=== PATIENT | female | born 1940 | race Caucasian/White ===

== ENCOUNTER 2022-05-05 15:53 | Outpatient (CLI) | payer MEDICARE, BC, SELFPAY | END 2022-05-05 15:54 | disposition home or self-care (01) | LOC: NFLDREF 05-06 12:49 | PROVIDERS: PCP Family Medicine; Referring Provider Family Medicine; Visit Provider Family Medicine | DX: Z00.00 Encounter for general adult medical examination without abnormal findings (principal); I10 Essential (primary) hypertension; R73.9 Hyperglycemia, unspecified; G45.9 Transient cerebral ischemic attack, unspecified | CPT/HCPCS: 80048 ==

== ENCOUNTER 2023-10-02 12:12 | Outpatient (CLI) | payer MEDICARE, BC, SELFPAY ==
--- OUTSIDE RECORDS SUMMARY | 2023-10-02 12:16 | XMS_ITS | Clinical Summary ---
Author Organization [facility] Address [place], [place] [address] Care Team Providers Care Talent Specialist Name Role Phone Manolo Cook MD Primary Care Provider [phone] Allergies Active Allergy Reactions Criticality Noted Date Comments Sulfa (Sulfonamide Antibiotics) Hives 06/13 Tetracycline Hcl Hives 07/09/2021 Medications Medication Sig Dispensed Refills Start Date End Date Status metoprolol succinate (Toprol XL) 50 mg sustained-release tablet Take 50 mg by mouth once daily. Active triamterene-hydrochlor othiazide, 37.5-25 mg, (MAXZIDE-25) 37.5-25 mg tablet Take 1 Tablet by mouth every morning. Active Active Problems Problem Noted Date Diagnosed Date Large bowel obstruction 02/09/2023 Hypertension 10/08/2006 Social History Tobacco Use Types Packs/Day Years Used Date Smoking Tobacco: Never Smokeless Tobacco: Never Tobacco Cessation:Counseling Given: Not Answered Alcohol Use Standard Drinks/Week Comments Never 0 (1 standard drink = 0.6 oz pur e alcohol) Social Connections Answer Date Recorded Frequency of Communication with Friends and Fami ly 0 02/09/2023 Financial Resource Strain Answer Date R ecorded Difficulty of Paying Living Expenses 3 02/09/2023 Difficulty of Paying Living Expenses Not on file 02/09/2023 Food Insecurity Answer Date Recorded Worried About Running Out of Food in the Last Ye ar 1 02/09/2023 Transportation Needs Answer Date Record ed Lack of Transportation (Medical) 1 02/09/2023 Housing Stability Answer Date Recorded Unable to Pay for Housing in the Last Year 1 02/09/2023 Sex and Gender Information Value Date Recorded Sex Assigned at Not on file Gender Identity Not on file Sexual Orientation Not on file Obstetrics History Last Filed Vital Signs Vital Sign Reading Time Taken Comments Blood Pressure 152/87 02/14/2023 8:58 AM HEAD MACHINIST Pulse 70 02/14/2023 8:58 AM HEAD MACHINIST Temperature 36.2 ??C (97.1 ??F) 02/14/2023 7:44 AM CS T Respiratory Rate 16 02/14/2023 8:58 AM HEAD MACHINIST Oxygen Saturation 95% 02/14/2023 8:58 AM HEAD MACHINIST Inhaled Oxygen Concentration - - Weight 79.6 kg (175 lb 6.4 oz) 02/09/2023 6:38 P M HEAD MACHINIST Height 154.9 cm (5' 1) 02/09/2023 6:38 PM HEAD MACHINIST Body Mass Index 33.14 02/09/2023 6:38 PM HEAD MACHINIST Plan of Treatment Health Maintenance Due Date Last Done Comments Tdap 1949 Depression screening for age 12+ 1950 BMI (ht and wt on same day) for age 18+ 1956 Tetanus booster 1958 Zoster (shingles) series for age 50+ (1 of 2) 09/30/18 89 DEXA/DXA scan for age 65+ 10/01/2003 Pneumococcal series for age 65+ (1 of 1 - PCV) 004 COVID-19 vaccine series ( - 2022-24 season) 3 Influenza for age 65+ 10/14/2023 Advance Directives * Full Code (Latest Code Status on File) Date Activated Date Inactivated Comments 02/09/2023 6:52 PM 02/14/2023 2:39 PM Question Answer Comments Code Status Discussion: Reviewed Preferences Care Teams Talent Specialist Relationship Specialty Start Date End Date Manolo Cook MD [address] [place] [address] PCP - General Family Practice 08/08/16
--- OUTSIDE RECORDS SUMMARY | 2023-10-02 12:16 | XMS_ITS | Referral Summary ---
Author Organization [facility] Address [address] [place] [address] Care Team Providers Care Segmental Paving Supervisor Name Role Phone Elsewhere, Pcp Primary Care Provider Unavailabl e Source Comments Patient records contain information from all sites at [facility]. For routine questions regarding patient records, call [phone] during business hours, M-F 8:00 AM - 5:00 PM Central Time. Record requests for emergency care only can be directed to [phone] at any time.[facility] Encounters Date Type Department Care Team Description 07/20/2023 11:30 AM CDT Telemedicine Division of Colon and Rectal Surgery in [place], [place] [address] [place] [address] Mansi Downs M.D., Ph.D. 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); Colostomy Status (HCC) 07/16/2023 10:30 AM CDT Clinical Support Division of Colon and Rectal Surgery in [place], [place] [address] [place] [address] Lorin Benites R.N., PURA Colostomy Status (HCC) (Primary Dx) from Last 3 Months Allergies Active Allergy Reactions Criticality Noted Date Comments Acyclovir Nausea And Vomiting 06/25/2007 Latex Rash Medium 07/15/2021 Sulfa (Sulfonamide Antibiotics) Hives (Reselect Reaction) 07/09/2021 Tetracycline Anaphylaxis High 10/08/2006 Tetracyclines Hives (Reselect Reaction) 010 Medications Medication Sig Dispensed Refills Start Date End Date Status metoprolol succinate (TOPROL-XL) 50 mg 24 hr tablet Take 50 mg by mouth daily. 3 12/12/2017 Active triamterene-hydroCHL OROthiazide (MAXZIDE-25) 37.5-25 mg per tablet Take 1 tablet by mouth daily. 3 12/12/2017 Active DME Ostomy suppliesIndications: Obstruction Intestinal (HCC) DME Order 1 Unspecified 11 02/20/2023 Active enoxaparin (LOVENOX) 40 mg/0.4 mL injection Inject 0.4 mL (40 mg total) under the skin daily for 7 days. 2.8 mL 02/20/2023 Active oxyCODONE (ROXICODONE) 5 mg immediate release tabletIndications:Ac keith Pain Take 1 tablet (5 mg total) by mouth every 4 (four) hours as needed for pain not relieved by tylenol. Indication: Acute Pain. 6 tablet 02/20/2023 Active ondansetron ODT (ZOFRAN-ODT) 4 mg disintegrating tablet Dissolve 1 tablet (4 mg total) in the mouth every 8 (eight) hours as needed for nausea or vomiting. 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 02/14/2023 Transient Ischemic Attack 02/14/2023 Hypertension Essential Primary 10/08/2006 Resolved Problems Problem Noted Date Diagnosed Date Resolved Date Obstruction Intestinal 02/14/202307/19 Obstruction Intestinal 02/09/202307/19 Immunizations Name Administration Dates Next Due Influenza, Seasonal, Injectable 01/08/2007 Social History Tobacco Use Types Packs/Day Years Used Date Smoking Tobacco: Never Passive Smoke Exposure: Never Tobacco Cessation:Counseling Given: Not Answered Alcohol Use Standard Drinks/Week Comments Not Currently 0 (1 standard drink = 0.6 oz pur e alcohol) [facility] Utilities Answer Date Recorded In the past 12 months has [facility] [employer], gas, oil, or water [employer] threatened to shut off services in your home? Patient declined 04/04/2023 Humiliation, Afraid, Rape, and Kick questionnair e Answer Date Recorded Within the last year, have y ou been afraid of your partner or ex-partner? No 02/16/2023 Within the last year, have y ou been humiliated or emotionally abused in other ways by your partner or ex-partner? No Within the last year, have y ou been kicked, hit, slapped, or otherwise physically hurt by your partner or ex-partner? No 02/16/2023 Within the last year, have y ou been raped or forced to have any kind of sexual activity by your partner or ex-partner? No 02/16/2023 Exercise Vital Sign Answer Date Recorde d On average, how many days pe r week do you engage in moderate to strenuous exercise (like a brisk walk)? Patient declined On average, how many minutes do you engage in exercise at this level? Patient declined 04/04/2023 Hunger Vital Sign Answer Date Recorded Within the past 12 months, y ou worried that your food would run out before you got the money to buy more. Patient declined Within the past 12 months, t he food you bought just didn't last and you didn't have money to get more. Patient declined PRAPARE - Transportation Answer Date Re corded In the past 12 months, has l ack of transportation kept you from medical appointments or from getting medications? Patient declined 04/04/2023 In the past 12 months, has l ack of transportation kept you from meetings, work, or from getting things needed for daily living? Patient declined 04/04/2023 Nutrition Answer Date Recorded Nutrition: EVOO Fat Source 13 10/27 Nutrition: Servings of Fruits/Vegetables per Day Not on file 10/28/2019 Dental Answer Date Recorded Dental: Regular Dentist Unknown 04/05/19 Employment Answer Date Recorded Employment status N/A 04/04/2023 Housing Stability Answer Date Recorded What is your living situation today? Patient dec lined 04/04/2023 Sex and Gender Information Value Date Recorded Sex Assigned at Unknown 04/04/2023 1:31 PM JEWELRY TECHNICIAN Gender Identity Female 04/04/2023 1:31 PM JEWELRY TECHNICIAN Sexual Orientation Not on file Last Filed Vital Signs Vital Sign Reading Time Taken Comments Blood Pressure 173/73 04/02/2023 2:32 PM JEWELRY TECHNICIAN Pulse 53 04/02/2023 2:32 PM JEWELRY TECHNICIAN Temperature 36.6 ??C (97.9 ??F) 04/02/2023 2:32 PM CS T Respiratory Rate 15 04/02/2023 2:32 PM JEWELRY TECHNICIAN Oxygen Saturation 98% 02/20/2023 3:20 PM JEWELRY TECHNICIAN Inhaled Oxygen Concentration - - Weight 76.8 kg (169 lb 6.4 oz) 04/04/2023 1:47 P M JEWELRY TECHNICIAN Height 154.5 cm (5' 0.83) 02/16/2023 3:25 PM CS T Body Mass Index 32.19 02/16/2023 3:25 PM JEWELRY TECHNICIAN Plan of Treatment Not on file Medical Devices Implanted Type Area Lead Manufacturing Technician Device Identifier Shelf Expiration Date Model / Serial / Lot Solid Screw Standard Iti Rn 4.10mm 4.10mm X 16.00mm- Implanted:Qty: 1 on 07/12/1999 by Júnior Cali D.D.S. Hardware e.g. pins/screws/r ods Mouth [employer]umann [id number] / / NA Description:Site #22 Solid Screw Standard Iti Rn 4.10mm 4.10mm X 16.00mm- 000 Implanted:Qty: 1 on 07/12/1999 by Júnior Cali D.D.S. Hardware e.g. pins/screws/r ods Mouth [employer] [id number] / / NA Description:Site #23 Solid Screw Standard Iti Rn 4.10mm 4.10mm X 16.00mm- Implanted:Qty: 1 on 07/12/1999 by Júnior Cali D.D.S. Hardware e.g. pins/screws/r ods Mouth [employer] [id number] / / NA Description:Site #25 Procedures Procedure Name Priority Date/Time Associated Diagnosis Comments COMPREHENSIVE METABOLIC PANEL, S/P Routine 04/02/2023 8:37 AM JEWELRY TECHNICIAN Malignant Neoplasm Of Colon (HCC) from Last 3 Months or Most Recently Relevant to Health Maintenance Results * (ABNORMAL) Comprehensive Metabolic Panel (04/02/2023 8:37 AM JEWELRY TECHNICIAN) Potassium, S 3.3(L) 3.6 - 5.2 mmol/L 04/02/2023 10:00 AM JEWELRY TECHNICIAN DTL Sodium, S 131(L) 135 - 145 mmol/L 04/02/2023 10:00 AM JEWELRY TECHNICIAN DTL Chloride, S 91(L) 98 - 107 mmol/L 04/02/2023 10:00 AM JEWELRY TECHNICIAN DTL Bicarbonate, S 29 22 - 29 mmol/L 04/02/2023 10:00 AM JEWELRY TECHNICIAN DTL Anion Gap 11 7 - 15 04/02/2023 10:00 AM JEWELRY TECHNICIAN DTL BUN (Blood Urea Nitrogen), S 21 6 - 21 mg/dL 04/02/2023 10:00 AM JEWELRY TECHNICIAN DTL Creatinine 1.47(H) 0.59 - 1.04 mg/dL 04/02/2023 10:00 AM JEWELRY TECHNICIAN DTL Estimated GFR (eGFR) 35(L) >=60 mL/min/BS A 04/02/2023 10:00 AM JEWELRY TECHNICIAN DTL Comment: Estimated GFR calculated using the 2020 CKD_EPI creatinine equation. Calcium, Total, S 9.7 8.8 - 10.2 mg/dL 04/02/2023 10:00 AM JEWELRY TECHNICIAN DTL Glucose, S 109 70 - 140 mg/dL 04/02/2023 10:00 AM JEWELRY TECHNICIAN DTL Protein, Total, S 5.9(L) 6.3 - 7.9 g/dL 04/02/2023 10:00 AM JEWELRY TECHNICIAN DTL Albumin, S 3.5 3.5 - 5.0 g/dL 04/02/2023 10:00 AM JEWELRY TECHNICIAN DTL Aspartate Aminotransferase (AST), S 26 8 - 43 U/L 04/02/2023 10:00 AM JEWELRY TECHNICIAN DTL Alkaline Phosphatase, S 62 35 - 104 U/L 04/02/2023 10:00 AM JEWELRY TECHNICIAN DTL Alanine Aminotransferase (ALT), S 18 7 - 45 U/L 04/02/2023 10:00 AM JEWELRY TECHNICIAN DTL Bilirubin, Total, S 0.4 0.0 - 1.2 mg/dL 04/02/2023 10:00 AM JEWELRY TECHNICIAN DTL Blood (Blood, Venous) 04/02/2023 8:37 AM JEWELRY TECHNICIAN 04/02/2023 9:37 AM JEWELRY TECHNICIAN Mansi Downs M.D., Ph.D. LAB BLOOD AD D-ON [facility] [address] [place] [address], [place] DTL [facility] [place] [address] [place] [address] from Last 3 Months or Most Recently Relevant to Health Maintenance Care Teams Segmental Paving Supervisor Relationship Specialty Start Date End Date Elsewhere, Pcp PCP - General Internal Medicine 05/23/22
--- OUTSIDE RECORDS SUMMARY | 2023-10-02 12:16 | XMS_ITS ---
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 Other Current Plans Vascular Access Patency - Peripheral Intravenous Catheter and Rapid Infusion Catheter* Plan Start Date:03/06/2023 Linked Problems Dehydration Treatment Medications No medications scheduled. Past Plans Radiation Treatments * No radiation treatments are documented for this patient in [facility]. Treatments may have been administered in another system. Resolved Problems Problem Noted Date Diagnosed Date Resolved Date Obstruction Intestinal 02/14/202307/19 Obstruction Intestinal 02/09/202307/19
--- OUTSIDE RECORDS SUMMARY | 2023-10-02 12:16 | XMS_ITS | Encounter Summary ---
Author Organization [facility] Address [address] [place] [address] Care Team Providers Care Network Support Engineer Name Role Phone Elsewhere, Pcp Primary Care Provider Unavailabl e Reason for Visit * Outpatient (Routine) - Closed Specialty Diagnoses / Procedures Referred By Contac t Referred To Contact Colon and Rectal Surgery Mansi Downs M.D., Ph.D. [address] [place] [phone] [facility] Referral ID Status Reason Start Date Expiration Date Visits Re quested Visits Authorized [id number] Closed 05/30/2023 11/28/2024 1 1 Encounter Details Date Type Department Care Team (Late st Contact Info) Description 07/20/2023 11:30 AM CDT Telemedicine Division of Colon and Rectal Surgery in [place], [place] [address] [place] [phone] Mansi Downs M.D., Ph.D. 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); Colostomy Status (HCC) Social History Tobacco Use Types Packs/Day Years Used Date Smoking Tobacco: Never Passive Smoke Exposure: Never Alcohol Use Standard Drinks/Week Comments Not Currently 0 (1 standard drink = 0.6 oz pur e alcohol) [facility] Utilities Answer Date Recorded In the past 12 months has [employer], oil, or water [employer] threatened to shut off services in your [...] Sex Assigned at Unknown 04/04/2023 1:31 PM PEST LOCATOR Gender Identity Female 04/04/2023 1:31 PM PEST LOCATOR Sexual Orientation Not on file documented as of this encounter Progress Notes * Mansi Downs M.D., Ph.D. - 07/20/2023 11:30 AM CDT SUBJECTIVE Hates the bag, positioning w short torso. Irritation from the adhesive. Some days she has to take the bag off entirely and just sit with no appliance for her skin. She feels great and wants to live an active life. 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 Eating well. Trying to eat healthy foods. Had good bowel control before all of this started. No incontinence to gas or liquid. Wt 169 currently. 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 pT2N1a ER+ID- Her2-. Ddi not tolerate endocrine therapy 02/15/2023 presented with large bowel obstruction and 2 masses. Splenic flexure and rectal. Open resection of partial transverse to rectum with end colostomy. Moderately differentiated adenocarcinoma, identified in transverse/descending colon, forming a 5 x 4 x 0.8 cm mass invading the pericolonic fat/subserosa. An additional moderately differentiated adenocarcinoma with mucinous features, identified in rectum, arising from a tubulovillousadenoma, forming a 3.5 x 3.5 x 2.0 cm polypoid mass invading the muscularis propria. A separate tubular adenoma with low-grade dysplasia, 2.0 cm is identified in the descending/sigmoid colon. Multiple (42) lymph nodes are negative for tumor. Adjuvant chemo not recommended due to age and other comorbidities.. Declined biopsy of bone and intrathoracic LN for further diagnosis No acute distress treatment recommendations. 04/2023: was due to have radiation therapy to thoracic spine, palliative, but did not do because herpain nisa away CT cap: --Mediastinal and hilar adenopathy concerning for metastatic disease. --Several small pulmonary nodules described above which are indeterminate but concerning in light of findings within both the chest as well as abdomen/pelvis. --Subtle sclerotic lesions within the sternal body as well as a sclerotic compression deformity of the T8 vertebral body concerning for potential pathologic compression deformity. --Persistent areas of focal luminal narrowing within the splenic flexure the colon as well as involving the rectosigmoid colon, for which further endoscopic evaluation is recommended when appropriateclinically. --Similar magnitude of proximal/upstream fluid distention and dilatation. --Indeterminate left adrenal lesion, unchanged. 02/15/2023 MRI pelvis showed upper rectal tumor 10-15 cm from anal verge. MRF clear, no sphincter involvement, no suspicious extra mesorectal lymph nodes. Multiple Bone lesion in the pelvic bone and the sacrum up to 2 cm. 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 This may be a colorectal anastomosis or depending on her anatomy at the time of surgery right hemicolectomy with ileorectalanastomosis. We discussed at length typical changes to bowel function after scientology of continuity especially in the setting of an ileorectal anastomosis. Urgency, frequency, liquid bowel movements, occasional accidents can all be expected especially during initial recovery. With time this generally improved and we can use medication to help it, although some people are so dissatisfied with their bowel function that ultimately they go back to having an ostomy. In her case I would be ileostomy. We discussed typical operative risks such as bleeding infection anastomotic leak, cardiopulmonarycomplications. Discussed postoperative recovery. Ultimately her goal is highest quality of life andbeing active. For some people this is better facilitated with the stoma for others that is better facilitated with scientology of continuity. At this time she wishes to move forward with scientology of continuity understanding all of the issues we discussed above. Family members were also present on the video visit and had the opportunity to provide input in his questions. Encouraged her to remain active, focus on healthy eating, particularly protein, and work toward healthy weight loss if possible while awaiting surgery. My clinical reach out to her for surgical planning and timing. We will need to obtain CT abdomen pelvis with rectal contrast prior to surgery. 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
--- OUTSIDE RECORDS SUMMARY | 2023-10-02 12:16 | XMS_ITS | Clinical Summary ---
Author Organization [facility] Address [address] [place] [address] Care Team Providers Care Psychology Intern Name Role Phone Elsewhere, Pcp Primary Care Provider Unavailabl e Source Comments Patient records contain information from all sites at [facility]. For routine questions regarding patient records, call [phone] during business hours, M-F 8:00 AM - 5:00 PM Central Time. Record requests for emergency care only can be directed to [phone] at any time.[facility] Allergies Active Allergy Reactions Criticality Noted Date [...] Date Obstruction Intestinal 02/14/202307/19 Obstruction Intestinal 02/09/202307/19 Encounters Date Type Department Care Team Description 07/20/2023 11:30 AM CDT Telemedicine Division of Colon and Rectal Surgery in [place], [place] [address] [place] [address] Mansi Downs M.D., Ph.D. 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); Colostomy Status (HCC) 07/16/2023 10:30 AM CDT Clinical Support Division of Colon and Rectal Surgery in [place], [place] [address] [place] [address] Lorin Benites R.N., PURA Colostomy Status (HCC) (Primary Dx) from Last 3 Months Immunizations Name Administration Dates Next Due Influenza, Seasonal, Injectable 01/08/2007 Social History Tobacco Use Types Packs/Day Years Used Date Smoking Tobacco: Never Passive Smoke Exposure: Never Tobacco Cessation:Counseling Given: Not Answered Alcohol Use Standard Drinks/Week Comments Not Currently 0 (1 standard drink = 0.6 oz pur e alcohol) [facility] Utilities Answer Date Recorded In the past 12 months has Meri[employer]aleem, Nala, oil, or water [employer] threatened to shut off services in your [...] Sex Assigned at Unknown 04/04/2023 1:31 PM BICYCLE TAXI DRIVER Gender Identity Female 04/04/2023 1:31 PM BICYCLE TAXI DRIVER Sexual Orientation Not on file Last Filed Vital Signs Vital Sign Reading Time Taken Comments Blood Pressure 173/73 04/02/2023 2:32 PM BICYCLE TAXI DRIVER Pulse 53 04/02/2023 2:32 PM BICYCLE TAXI DRIVER Temperature 36.6 ??C (97.9 ??F) 04/02/2023 2:32 PM CS T Respiratory Rate 15 04/02/2023 2:32 PM BICYCLE TAXI DRIVER Oxygen Saturation 98% 02/20/2023 3:20 PM BICYCLE TAXI DRIVER Inhaled Oxygen Concentration - - Weight 76.8 kg (169 lb 6.4 oz) 04/04/2023 1:47 P M BICYCLE TAXI DRIVER Height 154.5 cm (5' 0.83) 02/16/2023 3:25 PM CS T Body Mass Index 32.19 02/16/2023 3:25 PM BICYCLE TAXI DRIVER Plan of Treatment Health Maintenance Due Date Last Done Comments COVID-19 Vaccine (#1) 10/01/1945 Pneumococcal vaccine (65+ years) (1 of 2 - PCV) 1946 DTaP,Tdap,and Td Vaccines (1 - Tdap) 1957 Zoster Vaccines (1 of 2) 1957 Depression Screening (Annual PHQ-2) 02/12/2023 Office Visit for Blood Pressure Check / Re-check 07/01/2023 04/02/2023 Influenza Vaccine (#1) 2023 01/08/2007 Creatinine Level (Kidney Function Test) 04/02/2024 04/02/2023, 03/05/2023, 02/19/2023, Additional history exists Potassium Level 04/02/2024 04/02/2023, 02/13, 02/20/2023, Additional history exists Sodium Level 04/02/2024 04/02/2023, 02/13, 02/19/2023, Additional history exists Fall Risk Screen (Annual) Completed 03/06/2023 HPV Vaccines Aged Out No longer eligi ble based on patient's age to complete this topic Medical Devices Implanted Type Area Ultrasound Technician Device Identifier Shelf Expiration Date Model [...] METABOLIC PANEL, S/P Routine 04/02/2023 8:37 AM BICYCLE TAXI DRIVER Malignant Neoplasm Of Colon (HCC) from Last 3 Months or Most Recently Relevant to Health Maintenance Results * (ABNORMAL) Comprehensive Metabolic Panel (04/02/2023 8:37 AM BICYCLE TAXI DRIVER) Potassium, S 3.3(L) 3.6 - 5.2 mmol/L 04/02/2023 10:00 AM BICYCLE TAXI DRIVER DTL Sodium, S 131(L) 135 - 145 mmol/L 04/02/2023 10:00 AM BICYCLE TAXI DRIVER DTL Chloride, S 91(L) 98 - 107 mmol/L 04/02/2023 10:00 AM BICYCLE TAXI DRIVER DTL Bicarbonate, S 29 22 - 29 mmol/L 04/02/2023 10:00 AM BICYCLE TAXI DRIVER DTL Anion Gap 11 7 - 15 04/02/2023 10:00 AM BICYCLE TAXI DRIVER DTL BUN (Blood Urea Nitrogen), S 21 6 - 21 mg/dL 04/02/2023 10:00 AM BICYCLE TAXI DRIVER DTL Creatinine 1.47(H) 0.59 - 1.04 mg/dL 04/02/2023 10:00 AM BICYCLE TAXI DRIVER DTL Estimated GFR (eGFR) 35(L) >=60 mL/min/BS A 04/02/2023 10:00 AM BICYCLE TAXI DRIVER DTL Comment: Estimated GFR calculated using the 2020 CKD_EPI creatinine equation. Calcium, Total, S 9.7 8.8 - 10.2 mg/dL 04/02/2023 10:00 AM BICYCLE TAXI DRIVER DTL Glucose, S 109 70 - 140 mg/dL 04/02/2023 10:00 AM BICYCLE TAXI DRIVER DTL Protein, Total, S 5.9(L) 6.3 - 7.9 g/dL 04/02/2023 10:00 AM BICYCLE TAXI DRIVER DTL Albumin, S 3.5 3.5 - 5.0 g/dL 04/02/2023 10:00 AM BICYCLE TAXI DRIVER DTL Aspartate Aminotransferase (AST), S 26 8 - 43 U/L 04/02/2023 10:00 AM BICYCLE TAXI DRIVER DTL Alkaline Phosphatase, S 62 35 - 104 U/L 04/02/2023 10:00 AM BICYCLE TAXI DRIVER DTL Alanine Aminotransferase (ALT), S 18 7 - 45 U/L 04/02/2023 10:00 AM BICYCLE TAXI DRIVER DTL Bilirubin, Total, S 0.4 0.0 - 1.2 mg/dL 04/02/2023 10:00 AM BICYCLE TAXI DRIVER DTL Blood (Blood, Venous) 04/02/2023 8:37 AM BICYCLE TAXI DRIVER 04/02/2023 9:37 AM BICYCLE TAXI DRIVER Mansi Downs M.D., Ph.D. LAB BLOOD AD D-ON [facility] [address] [place] [address], [facility] [address] [place] [address] from Last 3 Months or Most Recently Relevant to Health Maintenance Care Teams Psychology Intern Relationship Specialty Start Date End Date Elsewhere, Pcp PCP - General Internal Medicine 05/23/22
--- OUTSIDE RECORDS SUMMARY | 2023-10-02 12:16 | XMS_ITS ---
Author Organization [facility] Address [address] [place] [address] Care Team Providers Care Slotter Operator Name Role Phone Unavailable Unavailable Unavailable Surgery Details Not on file Complications Check Surgery Details section. Procedure Estimated Blood Loss Check Surgery Details section. Procedure Findings Check Surgery Details section. Procedure Specimens Taken Check Surgery Details section.
--- OUTSIDE RECORDS SUMMARY | 2023-10-02 12:17 | XMS_ITS | Encounter Summary ---
Author Organization [facility] Address [address] [place] [address] Care Team Providers Care Auto Radiator Mechanic Name Role Phone Elsewhere, Pcp Primary Care Provider Unavailabl e Reason for Visit * Appointment Request (Routine) - Closed Specialty Diagnoses / Procedures Referred By Contac t Referred To Contact Colon and Rectal Surgery Referral ID Status Reason Start Date Expiration Date Visits Re quested Visits Authorized [id number] Closed 07/12/2023 07/11/2024 1 1 Encounter Details Date Type Department Care Team (Latest Contact Info) Description 07/16/2023 10:30 AM CDT Clinical Support Division of Colon and Rectal Surgery in [place], [place] [address] [place] [address] Lorin Benites R.N., PURA [address] [place] [address] Colostomy Status (HCC) (Primary Dx) Social History Tobacco Use Types Packs/Day Years Used Date Smoking Tobacco: Never Passive Smoke Exposure: Never Alcohol Use Standard Drinks/Week Comments Not Currently 0 (1 standard drink = 0.6 oz pur e alcohol) [facility] Utilities Answer Date Recorded In the past 12 months has e electric, gas, oil, or water company threatened to shut off services in your [...] Sex Assigned at Unknown 04/04/2023 1:31 PM PAPER BAGS SEWING MACHINE OPERATOR Gender Identity Female 04/04/2023 1:31 PM PAPER BAGS SEWING MACHINE OPERATOR Sexual Orientation Not on file documented as of this encounter Progress Notes * Lorin Benites R.N., OSCARN - 07/16/2023 10:30 AM CDT SUBJECTIVE CHIEF COMPLAINT/REASON FOR VISIT Assessment of peristomal skin and pouching system management. HISTORY OF PRESENT ILLNESS Zuleima Edmonds is a 82 y.o. adult was self referred for evaluation of pouching system management. Patient states the pouching system is usually changed every 3 or 4 days. Denies problems with pouching system leakage. Patient reports that her skin itches. OBJECTIVE Physical Exam Ostomy (NEW) Colostomy RLQ (Active) Site Assessment Red;Budded Stoma Size 1 1/2 Skin Assessment Intact Skin Care Water Pouching System (Stomal Appliance) Status Changed Changed by Wound home sales consultant Pouching System Removed Leonor [phone], [id number] Slight hydration Pouching System Applied [place] [phone], [phone] Will try ceraplus to improve itching. She was also given [id number] tapeless wafer Ongoing management Patient/caregiver Output Description Brown;Pasty ASSESSMENT / PLAN Questions answered. The patient was given updated ordering information. Their prescription is current. Encouraged to call or return (per Return Appointment Protocol [id number]) for ostomy related questions or concerns. Patient verbalized understanding. documented in this encounter Plan of Treatment Not on file documented as of this encounter Visit Diagnoses Diagnosis Colostomy Status (HCC)- Primary documented in this encounter Care Teams Auto Radiator Mechanic Relationship Specialty Start Date End Date Elsewhere, Pcp PCP - General Internal Medicine 05/23/22 documented as of this encounter
--- OUTSIDE RECORDS SUMMARY | 2023-10-02 12:17 | XMS_ITS | Encounter Summary ---
Author Organization [facility] Address [address] [place] [address] Care Team Providers Care Shell Trim Tool Setter Name Role Phone Elsewhere, Pcp Primary Care Provider Unavailabl e Encounter Details Date Type Department Care Team (Late st Contact Info) Description 11/03/2016 Historical Ophthalmology [facility] Baltazar Sarah M.D. [address], [place] [address] Social History Tobacco Use Types Packs/Day Years Used Date Smoking Tobacco: Never Sex and Gender Information Value Date Recorded Sex Assigned at Unknown 04/04/2023 1:31 PM AGRICULTURAL EQUIPMENT OPERATOR Gender Identity Female 04/04/2023 1:31 PM AGRICULTURAL EQUIPMENT OPERATOR Sexual Orientation Not on file documented as of this encounter Progress Notes * Baltazar Sarah M.D. - 11/03/2016 10:43 AM CDT Eye General CHIEF COMPLAINT follow up keratitis OD HISTORY OF PRESENT ILLNESS Last exam was 3 days ago Pt. states VA has improved Denies any pain or discomfort with the eyes Using drops as directed IMPRESSION / REPORT / PLAN #1 Keratitis superficial right eye. Patient has two contacts in right eye, with ischemia and keratitis. Significant improvement. Plan: Resume Air Optix contacts. Discontinue Vigamox/ofloxacin and prednisolone 1% drops. F/u one to two weeks. II DIAGNOSIS #1 Keratitis superficial right eye. Patient has two contacts in right eye, with ischemia and keratitis. [facility] Reports - EYEGEN Id: [id number] Status: Fnl documented in this encounter Plan of Treatment Not on file documented as of this encounter Visit Diagnoses Not on filedocumented in this encounter Additional Health Concerns Infection Onset Date Last Indicated Resolved Time COVID19 Pending 10/16/2020 10/16/2020 10/17/2020 1 :06 AM CDT COVID19 10/16/2020 10/16/2020 11/05/2020 4:45 AM CDT documented as of this encounter Care Teams Shell Trim Tool Setter Relationship Specialty Start Date End Date Elsewhere, Pcp PCP - General Internal Medicine 05/23/22 documented as of this encounter
--- OUTSIDE RECORDS SUMMARY | 2023-10-02 12:17 | XMS_ITS | Encounter Summary ---
Author Organization [facility] Address [address] [place] [address] Care Team Providers Care Dag Sprayer Name Role Phone Elsewhere, Pcp Primary Care Provider Unavailabl e Encounter Details Date Type Department Care Team (Late st Contact Info) Description 10/31/2016 Historical Ophthalmology [facility] Baltazar Sarah M.D. [address] [address] Social History Tobacco Use Types Packs/Day Years Used Date Smoking Tobacco: Never Sex and Gender Information Value Date Recorded Sex Assigned at Unknown 04/04/2023 1:31 PM STRATEGIC SOURCING CONSULTANT Gender Identity Female 04/04/2023 1:31 PM STRATEGIC SOURCING CONSULTANT Sexual Orientation Not on file documented as of this encounter Progress Notes * Baltazar Sarah M.D. - 10/31/2016 1:48 PM CDT Eye General CHIEF COMPLAINT 1 day recheck keratitis HISTORY OF PRESENT ILLNESS Pt states Rt eye much better. Pain & discomforts seem to be passing. No Rt eye discharge today. IMPRESSION / REPORT / PLAN #1 Keratitis superficial right eye. Patient has two contacts in right eye, with ischemia and keratitis. Significant improvement. Plan: Discontinue contacts. Vigamox/ofloxacin and prednisolone 1% drop right eye four times daily. F/u three days. III DIAGNOSIS #1 Keratitis superficial right eye. Patient has two contacts in right eye, with ischemia and keratitis. [facility] Reports - EYEGEN Id: [id number] Status: Fnl documented in this encounter Plan of Treatment Not on file documented as of this encounter Visit Diagnoses Not on filedocumented in this encounter Additional Health Concerns Infection Onset Date Last Indicated Resolved Time COVID19 Pending 10/16/2020 10/16/2020 10/17/2020 1 :06 AM CDT COVID19 10/16/2020 10/16/2020 11/05/2020 4:45 AM CDT documented as of this encounter Care Teams Dag Sprayer Relationship Specialty Start Date End Date Elsewhere, Pcp PCP - General Internal Medicine 05/23/22 documented as of this encounter
--- OUTSIDE RECORDS SUMMARY | 2023-10-02 12:17 | XMS_ITS | Encounter Summary ---
Author Organization [facility] Address [address] [place] [address] Care Team Providers Care Derrick Operator Name Role Phone Elsewhere, Pcp Primary Care Provider Unavailabl e Encounter Details Date Type Department Care Team (Late st Contact Info) Description 10/30/2016 Historical Ophthalmology [facility] Baltazar Sarah M.D. [address], [place] [address] Social History Tobacco Use Types Packs/Day Years Used Date Smoking Tobacco: Never Sex and Gender Information Value Date Recorded Sex Assigned at Unknown 04/04/2023 1:31 PM ACCOUNT EXECUTIVE HEALTHCARE Gender Identity Female 04/04/2023 1:31 PM ACCOUNT EXECUTIVE HEALTHCARE Sexual Orientation Not on file documented as of this encounter Progress Notes * Baltazar Sarah M.D. - 10/30/2016 1:43 PM CDT Eye General CHIEF COMPLAINT Work in HISTORY OF PRESENT ILLNESS (Last visit 02-21-13) Red right eye on and off for 2 weeks. Very red, and painful, whitish mattering - worse today. Problems started shortly after mastectomy/ lymph node surgery in August. Used cl 1 time in the right since the surgery, but thinks she got it out. Has not been wearing cl on a regular basis. IMPRESSION / REPORT / PLAN #1 Keratitis superficial right eye. Patient has two contacts in right eye, with ischemia and keratitis. Plan: Discontinue contacts. Vigamox/ofloxacin and prednisolone 1% drop right eye four times daily. F/u one day. III DIAGNOSIS #1 Keratitis superficial right eye. Patient has two contacts in right eye, with ischemia and keratitis. [facility] Reports - EYEGEN Id: [id number] Status: Fnl documented in this encounter Plan of Treatment Not on file documented as of this encounter Visit Diagnoses Not on filedocumented in this encounter Additional Health Concerns Infection Onset Date Last Indicated Resolved Time COVID19 Pending 10/16/2020 10/16/2020 10/17/2020 1 :06 AM CDT COVID19 10/16/2020 10/16/2020 11/05/2020 4:45 AM CDT documented as of this encounter Care Teams Derrick Operator Relationship Specialty Start Date End Date Elsewhere, Pcp PCP - General Internal Medicine 05/23/22 documented as of this encounter
--- OUTSIDE RECORDS SUMMARY | 2023-10-02 12:17 | XMS_ITS | Encounter Summary ---
Author Organization [facility] Address [address] [place] [address] Care Team Providers Care Data Capture Specialist Name Role Phone Elsewhere, Pcp Primary Care Provider Unavailabl e Encounter Details Date Type Department Care Team (Late st Contact Info) Description 11/17/2016 Historical Ophthalmology [facility] Baltazar Sarah M.D. [address], [place] [address] Social History Tobacco Use Types Packs/Day Years Used Date Smoking Tobacco: Never Sex and Gender Information Value Date Recorded Sex Assigned at Unknown 04/04/2023 1:31 PM OFFICE COMMUNICATION PROFESSOR Gender Identity Female 04/04/2023 1:31 PM OFFICE COMMUNICATION PROFESSOR Sexual Orientation Not on file documented as of this encounter Progress Notes * Baltazar Sarah M.D. - 11/17/2016 9:03 AM CDT Eye General CHIEF COMPLAINT 2 week recheck HISTORY OF PRESENT ILLNESS Pt wore cl 4-5 times and was very dry and uncomfortable, so has not been wearing. Will be returningfor CE in the near future, and will update glasses Rx at that time. IMPRESSION / REPORT / PLAN #1 Keratitis superficial right eye. Patient has two contacts in right eye, with ischemia and keratitis. Resolved completely. #2 Dermatochalasis both upper lids increasingly bothering patient and affecting peripheral vision. Plan: Resume Air Optix contacts. RTC CE/BULB VF/photos. II DIAGNOSIS #1 Keratitis superficial right eye. Patient has two contacts in right eye, with ischemia and keratitis. Resolved completely. #2 Dermatochalasis both upper lids increasingly bothering patient and affecting peripheral vision. [facility] Reports - EYEGEN Id: [id number] Status: Fnl documented in this encounter Plan of Treatment Not on file documented as of this encounter Visit Diagnoses Not on filedocumented in this encounter Additional Health Concerns Infection Onset Date Last Indicated Resolved Time COVID19 Pending 10/16/2020 10/16/2020 10/17/2020 1 :06 AM CDT COVID19 10/16/2020 10/16/2020 11/05/2020 4:45 AM CDT documented as of this encounter Care Teams Data Capture Specialist Relationship Specialty Start Date End Date Elsewhere, Pcp PCP - General Internal Medicine 05/23/22 documented as of this encounter
--- OUTSIDE RECORDS SUMMARY | 2023-10-02 12:17 | XMS_ITS | Encounter Summary ---
Author Organization [facility] Address [address] [place] [address] Care Team Providers Care Tank Washer Name Role Phone Elsewhere, Pcp Primary Care Provider Unavailabl e Encounter Details Date Type Department Care Team (Latest Contact Info) Description 02/14/2023 Intake [facility] Social History Tobacco Use Types Packs/Day Years Used Date Smoking Tobacco: Never Passive Smoke Exposure: Never Alcohol Use Standard Drinks/Week Comments Not Currently 0 (1 standard drink = 0.6 oz pur e alcohol) [facility] Utilities Answer Date Recorded In the past 12 months has [employer], gas, oil, or water [employer] threatened to shut off services in your [...] Sex Assigned at Unknown 04/04/2023 1:31 PM BOOSTER STATION OPERATOR Gender Identity Female 04/04/2023 1:31 PM BOOSTER STATION OPERATOR Sexual Orientation Not on file documented as of this encounter Plan of Treatment Not on file documented as of this encounter Visit Diagnoses Not on filedocumented in this encounter Care Teams Tank Washer Relationship Specialty Start Date End Date Elsewhere, Pcp PCP - General Internal Medicine 05/23/22 documented as of this encounter
--- OUTSIDE RECORDS SUMMARY | 2023-10-02 12:17 | XMS_ITS | Encounter Summary ---
Author Organization [facility] Address [address] [place] [address] Care Team Providers Care Action Finisher Name Role Phone Elsewhere, Pcp Primary Care Provider Unavailabl e Encounter Details Date Type Department Care Team (Late st Contact Info) Description 12/08/2016 Historical Ophthalmology [facility] Baltazar Sarah M.D. [address] [place] [address] Social History Tobacco Use Types Packs/Day Years Used Date Smoking Tobacco: Never Sex and Gender Information Value Date Recorded Sex Assigned at Unknown 04/04/2023 1:31 PM SAXOPHONE ASSEMBLER Gender Identity Female 04/04/2023 1:31 PM SAXOPHONE ASSEMBLER Sexual Orientation Not on file documented as of this encounter Progress Notes * Baltazar Sarah M.D. - 12/08/2016 2:34 PM CDT Eye General CHIEF COMPLAINT CE and Bleph field and photos HISTORY OF PRESENT ILLNESS Last exam was 1 month ago Pt. states VA seems to have improved since last exam No concerns with eyes and VA at this time IMPRESSION / REPORT / PLAN #1 Keratitis superficial right eye. Patient has two contacts in right eye, with ischemia and keratitis. Resolved completely. #2 Dermatochalasis both upper lids increasingly bothering patient and affecting peripheral vision. #3 Cataract nuclear both eyes. Plan: Optional change glasses. RTC BULB VF/photos. CE/ref DIAGNOSIS #1 Keratitis superficial right eye. Patient has two contacts in right eye, with ischemia and keratitis. Resolved completely. #2 Dermatochalasis both upper lids increasingly bothering patient and affecting peripheral vision. #3 Cataract nuclear both eyes. [facility] Reports - EYEGEN Id: [id number] Status: Fnl documented in this encounter Plan of Treatment Not on file documented as of this encounter Visit Diagnoses Not on filedocumented in this encounter Additional Health Concerns Infection Onset Date Last Indicated Resolved Time COVID19 Pending 10/16/2020 10/16/2020 10/17/2020 1 :06 AM CDT COVID19 10/16/2020 10/16/2020 11/05/2020 4:45 AM CDT documented as of this encounter Care Teams Action Finisher Relationship Specialty Start Date End Date Elsewhere, Pcp PCP - General Internal Medicine 05/23/22 documented as of this encounter
--- OUTSIDE RECORDS SUMMARY | 2023-10-02 12:17 | XMS_ITS | Encounter Summary ---
Author Organization [facility] Address [address] [place] [address] Care Team Providers Care Cow Tender Name Role Phone Elsewhere, Pcp Primary Care Provider Unavailabl e Encounter Details Date Type Department Care Team (Late st Contact Info) Description 12/08/2016 Historical Ophthalmology [facility] Baltazar Sarah M.D. [address] [place] [address] Social History Tobacco Use Types Packs/Day Years Used Date Smoking Tobacco: Never Sex and Gender Information Value Date Recorded Sex Assigned at Unknown 04/04/2023 1:31 PM SHAREBROKER Gender Identity Female 04/04/2023 1:31 PM SHAREBROKER Sexual Orientation Not on file documented as of this encounter Progress Notes * Baltazar Sarah M.D. - 12/08/2016 3:23 PM CDT Contact Lens Exam HISTORY OF PRESENT ILLNESS Pt. states states CL is comfortable and VA seems good. Only wears in OD [facility] Reports - EYECL Id: [id number] Status: Fnl documented in this encounter Plan of Treatment Not on file documented as of this encounter Visit Diagnoses Not on filedocumented in this encounter Additional Health Concerns Infection Onset Date Last Indicated Resolved Time COVID19 Pending 10/16/2020 10/16/2020 10/17/2020 1 :06 AM CDT COVID19 10/16/2020 10/16/2020 11/05/2020 4:45 AM CDT documented as of this encounter Care Teams Cow Tender Relationship Specialty Start Date End Date Elsewhere, Pcp PCP - General Internal Medicine 05/23/22 documented as of this encounter
== END 2023-10-02 12:13 | disposition home or self-care (01) ==
PROVIDERS: PCP Family Medicine; Visit Provider Family Medicine
DX: C18.9 Malignant neoplasm of colon, unspecified (principal); C79.51 Secondary malignant neoplasm of bone; I10 Essential (primary) hypertension
CPT/HCPCS: 80053; 82378

== ENCOUNTER 2023-10-25 12:29 | Outpatient (CLI) | payer MEDICARE, BC, SELFPAY ==
--- OUTSIDE RECORDS SUMMARY | 2023-10-25 12:33 | XMS_ITS | Encounter Summary ---
Author Organization [facility] Address [address] [place] [address] Care Team Providers Care Simulation Engineer Name Role Phone Elsewhere, Pcp Primary Care Provider Unavailabl e Reason for Visit * Outpatient (Routine) - Closed Specialty Diagnoses / Procedures Referred By Contac t Referred To Contact Colon and Rectal Surgery Mansi Downs M.D., Ph.D. [address] [place] [phone] [facility] Referral ID Status Reason Start Date Expiration Date Visits Re quested Visits Authorized [id number] Closed 05/30/2023 11/28/2024 1 1 Encounter Details Date Type Department Care Team (Late st Contact Info) Description 07/20/2023 11:30 AM CDT Telemedicine Division of Colon and Rectal Surgery in [place], [place] [address] [place] [phone] Mansi Downs M.D., Ph.D. 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); Colostomy Status (HCC) Social History Tobacco Use Types Packs/Day Years Used Date Smoking Tobacco: Never Passive Smoke Exposure: Never Alcohol Use Standard Drinks/Week Comments Not Currently 0 (1 standard drink = 0.6 oz pur e alcohol) [facility] Utilities Answer Date Recorded In the past 12 months has [employer], oil, or water [employer] threatened to shut off services in your [...] Sex Assigned at Unknown 04/04/2023 1:31 PM SECONDARY ENGLISH TEACHER Gender Identity Female 04/04/2023 1:31 PM SECONDARY ENGLISH TEACHER Sexual Orientation Not on file documented as [...] Is back to work-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 Eating well. Trying to eat healthy foods. Had good bowel control before all of this started. No incontinence to gas or liquid. Wt 169 currently. 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 At this time she wishes to move forward with amish of continuity understanding all of the issues [...] (HCC) documented in this encounter Care Teams Simulation Engineer Relationship Specialty Start Date End Date Elsewhere, Pcp PCP - General Internal Medicine 05/23/22 documented as of this encounter
--- OUTSIDE RECORDS SUMMARY | 2023-10-25 12:33 | XMS_ITS | Clinical Summary ---
Author Organization [facility] Address [address] [place] [address] Care Team Providers Care Diver Tender Name Role Phone Elsewhere, Pcp Primary Care Provider Unavailabl e Source Comments Patient records contain information from all sites at [facility]. For routine questions regarding patient records, call [phone] during business hours, M-F 8:00 AM - 5:00 PM Central Time. Record requests for emergency care only can be directed to [phone] at any time.[facility] Allergies Active Allergy Reactions Criticality Noted [...] or vomiting. 60 tablet 3 03/06/2023 Active DME Ostomy suppliesIndications: Colostomy Status (HCC) DME Order 1 Unspecified 11 10/24/2023 Active Active Problems Problem Noted Date Diagnosed [...] Encounters Date Type Department Care Team Description 10/24/2023 Orders Only Division of Colon and Rectal Surgery in [place], [place] [address] [place] [address] Yenny Jeronimo, JESICA, C.N.P., D.N.P. Colostomy Status (HCC) (Primary Dx) from Last 3 Months Immunizations Name Administration Dates Next Due Influenza, Seasonal, Injectable 01/08/2007 Social History Tobacco Use Types Packs/Day Years Used Date Smoking Tobacco: Never Passive Smoke Exposure: Never Tobacco Cessation:Counseling Given: Not Answered Alcohol Use Standard Drinks/Week Comments Not Currently 0 (1 standard drink = 0.6 oz pur e alcohol) [facility] Utilities Answer Date Recorded In the past 12 months has e [employer], gas, oil, or water [employer] threatened to shut off services in your [...] Sex Assigned at Unknown 04/04/2023 1:31 PM COOLING SYSTEM OPERATOR Gender Identity Female 04/04/2023 1:31 PM COOLING SYSTEM OPERATOR Sexual Orientation Not on file Last Filed Vital Signs Vital Sign Reading Time Taken Comments Blood Pressure 173/73 04/02/2023 2:32 PM COOLING SYSTEM OPERATOR Pulse 53 04/02/2023 2:32 PM COOLING SYSTEM OPERATOR Temperature 36.6 ??C (97.9 ??F) 04/02/2023 2:32 PM CS T Respiratory Rate 15 04/02/2023 2:32 PM COOLING SYSTEM OPERATOR Oxygen Saturation 98% 02/20/2023 3:20 PM COOLING SYSTEM OPERATOR Inhaled Oxygen Concentration - - Weight 76.8 kg (169 lb 6.4 oz) 04/04/2023 1:47 P M COOLING SYSTEM OPERATOR Height 154.5 cm (5' 0.83) 02/16/2023 3:25 PM CS T Body Mass Index 32.19 02/16/2023 3:25 PM COOLING SYSTEM OPERATOR Plan of Treatment Health Maintenance Due Date [...] this topic Medical Devices Implanted Type Area Family Law Legal Assistant Device Identifier Shelf Expiration Date Model / [...] METABOLIC PANEL, S/P Routine 04/02/2023 8:37 AM COOLING SYSTEM OPERATOR Malignant Neoplasm Of Colon (HCC) from Last 3 Months or Most Recently Relevant to Health Maintenance Results * (ABNORMAL) Comprehensive Metabolic Panel (04/02/2023 8:37 AM COOLING SYSTEM OPERATOR) Potassium, S 3.3(L) 3.6 - 5.2 mmol/L 04/02/2023 10:00 AM COOLING SYSTEM OPERATOR DTL Sodium, S 131(L) 135 - 145 mmol/L 04/02/2023 10:00 AM COOLING SYSTEM OPERATOR DTL Chloride, S 91(L) 98 - 107 mmol/L 04/02/2023 10:00 AM COOLING SYSTEM OPERATOR DTL Bicarbonate, S 29 22 - 29 mmol/L 04/02/2023 10:00 AM COOLING SYSTEM OPERATOR DTL Anion Gap 11 7 - 15 04/02/2023 10:00 AM COOLING SYSTEM OPERATOR DTL BUN (Blood Urea Nitrogen), S 21 6 - 21 mg/dL 04/02/2023 10:00 AM COOLING SYSTEM OPERATOR DTL Creatinine 1.47(H) 0.59 - 1.04 mg/dL 04/02/2023 10:00 AM COOLING SYSTEM OPERATOR DTL Estimated GFR (eGFR) 35(L) >=60 mL/min/BS A 04/02/2023 10:00 AM COOLING SYSTEM OPERATOR DTL Comment: Estimated GFR calculated using the 2020 CKD_EPI creatinine equation. Calcium, Total, S 9.7 8.8 - 10.2 mg/dL 04/02/2023 10:00 AM COOLING SYSTEM OPERATOR DTL Glucose, S 109 70 - 140 mg/dL 04/02/2023 10:00 AM COOLING SYSTEM OPERATOR DTL Protein, Total, S 5.9(L) 6.3 - 7.9 g/dL 04/02/2023 10:00 AM COOLING SYSTEM OPERATOR DTL Albumin, S 3.5 3.5 - 5.0 g/dL 04/02/2023 10:00 AM COOLING SYSTEM OPERATOR DTL Aspartate Aminotransferase (AST), S 26 8 - 43 U/L 04/02/2023 10:00 AM COOLING SYSTEM OPERATOR DTL Alkaline Phosphatase, S 62 35 - 104 U/L 04/02/2023 10:00 AM COOLING SYSTEM OPERATOR DTL Alanine Aminotransferase (ALT), S 18 7 - 45 U/L 04/02/2023 10:00 AM COOLING SYSTEM OPERATOR DTL Bilirubin, Total, S 0.4 0.0 - 1.2 mg/dL 04/02/2023 10:00 AM COOLING SYSTEM OPERATOR DTL Blood (Blood, Venous) 04/02/2023 8:37 AM COOLING SYSTEM OPERATOR 04/02/2023 9:37 AM COOLING SYSTEM OPERATOR Mansi Downs M.D., Ph.D. LAB BLOOD AD D-ON [facility] [address] [place] [address], [place] [facility] [address] [place] [address] from Last 3 Months or Most Recently Relevant to Health Maintenance Care Teams Diver Tender Relationship Specialty Start Date End Date Elsewhere, Pcp PCP - General Internal Medicine 05/23/22
--- OUTSIDE RECORDS SUMMARY | 2023-10-25 12:33 | XMS_ITS ---
Author Organization [facility] Address [address] [place] [address] Care Team Providers Care Banquet Cook Name Role Phone Elsewhere, Pcp Primary Care [...] treatments are documented for this patient in [facility]. Treatments may have been administered in another system. Resolved Problems Problem Noted Date Diagnosed Date Resolved Date Obstruction Intestinal 02/14/202307/19 Obstruction Intestinal 02/09/202307/19
--- OUTSIDE RECORDS SUMMARY | 2023-10-25 12:33 | XMS_ITS | Encounter Summary ---
Author Organization [facility] Address [address] [place] [address] Care Team Providers Care Pharmacist Critical Care Name Role Phone Elsewhere, Pcp Primary Care Provider Unavailabl e Encounter Details Date Type Department Care Team ([facility] st Contact Info) Description 10/24/2023 Orders Only Division of Colon and Rectal Surgery in [place], [place] [address] [place] [phone] Yenny Jeronimo, JESICA, C.N.P., D.N.P. [address] [place] [phone] Colostomy Status (HCC) (Primary Dx) Social History Tobacco Use Types Packs/Day Years Used Date Smoking Tobacco: Never Passive Smoke Exposure: Never Alcohol Use Standard Drinks/Week Comments Not Currently 0 (1 standard drink = 0.6 oz pur e alcohol) [facility] Utilities Answer Date Recorded In the past 12 months has [facility] [employer], [employer], or water [employer] threatened to shut off services in your [...] Sex Assigned at Unknown 04/04/2023 1:31 PM UNSCRAMBLER Gender Identity Female 04/04/2023 1:31 PM UNSCRAMBLER Sexual Orientation Not on file documented as of this encounter Plan of Treatment Not on file documented as of this encounter Visit Diagnoses Diagnosis Colostomy Status (HCC)- Primary documented in this encounter Care Teams Pharmacist Critical Care Relationship Specialty Start Date End Date Elsewhere, Pcp PCP - General Internal Medicine 05/23/22 documented as of this encounter
--- OUTSIDE RECORDS SUMMARY | 2023-10-25 12:33 | XMS_ITS | Referral Summary ---
Author Organization [facility] Address [address] [place] [address] Care Team Providers Care Research Biologist Name Role Phone Elsewhere, Pcp Primary Care Provider Unavailabl e Source Comments Patient records contain information from all sites at [facility]. For routine questions regarding patient records, call [phone] during business hours, M-F 8:00 AM - 5:00 PM Central Time. Record requests for emergency care only can be directed to [phone] at any time.[facility] Encounters Date Type Department Care Team Description 10/24/2023 Orders Only Division of Colon and Rectal Surgery in [place], [place] [address] [place] [address] Yenny Jeronimo, JESICA, C.N.P., D.N.P. Colostomy Status [...] drink = 0.6 oz pur e alcohol) [facility] Utilities Answer Date Recorded In the past 12 months has [facility] [employer], gas, oil, or water [employer] threatened to shut off services in your [...] Sex Assigned at Unknown 04/04/2023 1:31 PM PROCESS IMPROVEMENT ENGINEER Gender Identity Female 04/04/2023 1:31 PM PROCESS IMPROVEMENT ENGINEER Sexual Orientation Not on file Last Filed Vital Signs Vital Sign Reading Time Taken Comments Blood Pressure 173/73 04/02/2023 2:32 PM PROCESS IMPROVEMENT ENGINEER Pulse 53 04/02/2023 2:32 PM PROCESS IMPROVEMENT ENGINEER Temperature 36.6 ??C (97.9 ??F) 04/02/2023 2:32 PM CS T Respiratory Rate 15 04/02/2023 2:32 PM PROCESS IMPROVEMENT ENGINEER Oxygen Saturation 98% 02/20/2023 3:20 PM PROCESS IMPROVEMENT ENGINEER Inhaled Oxygen Concentration - - Weight 76.8 kg (169 lb 6.4 oz) 04/04/2023 1:47 P M PROCESS IMPROVEMENT ENGINEER Height 154.5 cm (5' 0.83) 02/16/2023 3:25 PM CS T Body Mass Index 32.19 02/16/2023 3:25 PM PROCESS IMPROVEMENT ENGINEER Plan of Treatment Not on file Medical Devices Implanted Type Area Gi Technician Device Identifier Shelf Expiration Date Model / Serial / Lot Solid Screw Standard Iti Rn 4.10mm 4.10mm X 16.00mm- Implanted:Qty: 1 on 07/12/1999 by Júnior Cali D.D.S. Hardware e.g. pins/screws/r ods Mouth Straumann [id number] / / NA Description:Site #22 Solid Screw Standard Iti Rn 4.10mm 4.10mm X 16.00mm- 000 Implanted:Qty: 1 on 07/12/1999 by Júnior Cali D.D.SChu Hardware e.g. pins/screws/r ods Mouth Straumann [id number] / / NA Description:Site #23 Solid Screw Standard Iti Rn 4.10mm 4.10mm X 16.00mm- 000 Implanted:Qty: 1 on 07/12/1999 by Júnior Cali D.D.SCuh Hardware e.g. pins/screws/r ods Mouth Straumann [id number] / / NA Description:Site #25 Procedures Procedure Name Priority Date/Time Associated Diagnosis Comments COMPREHENSIVE METABOLIC PANEL, S/P Routine 04/02/2023 8:37 AM PROCESS IMPROVEMENT ENGINEER Malignant Neoplasm Of Colon (HCC) from Last 3 Months or Most Recently Relevant to Health Maintenance Results * (ABNORMAL) Comprehensive Metabolic Panel (04/02/2023 8:37 AM PROCESS IMPROVEMENT ENGINEER) Potassium, S 3.3(L) 3.6 - 5.2 mmol/L 04/02/2023 10:00 AM PROCESS IMPROVEMENT ENGINEER DTL Sodium, S 131(L) 135 - 145 mmol/L 04/02/2023 10:00 AM PROCESS IMPROVEMENT ENGINEER DTL Chloride, S 91(L) 98 - 107 mmol/L 04/02/2023 10:00 AM PROCESS IMPROVEMENT ENGINEER DTL Bicarbonate, S 29 22 - 29 mmol/L 04/02/2023 10:00 AM PROCESS IMPROVEMENT ENGINEER DTL Anion Gap 11 7 - 15 04/02/2023 10:00 AM PROCESS IMPROVEMENT ENGINEER DTL BUN (Blood Urea Nitrogen), S 21 6 - 21 mg/dL 04/02/2023 10:00 AM PROCESS IMPROVEMENT ENGINEER DTL Creatinine 1.47(H) 0.59 - 1.04 mg/dL 04/02/2023 10:00 AM PROCESS IMPROVEMENT ENGINEER DTL Estimated GFR (eGFR) 35(L) >=60 mL/min/BS A 04/02/2023 10:00 AM PROCESS IMPROVEMENT ENGINEER DTL Comment: Estimated GFR calculated using the 2020 CKD_EPI creatinine equation. Calcium, Total, S 9.7 8.8 - 10.2 mg/dL 04/02/2023 10:00 AM PROCESS IMPROVEMENT ENGINEER DTL Glucose, S 109 70 - 140 mg/dL 04/02/2023 10:00 AM PROCESS IMPROVEMENT ENGINEER DTL Protein, Total, S 5.9(L) 6.3 - 7.9 g/dL 04/02/2023 10:00 AM PROCESS IMPROVEMENT ENGINEER DTL Albumin, S 3.5 3.5 - 5.0 g/dL 04/02/2023 10:00 AM PROCESS IMPROVEMENT ENGINEER DTL Aspartate Aminotransferase (AST), S 26 8 - 43 U/L 04/02/2023 10:00 AM PROCESS IMPROVEMENT ENGINEER DTL Alkaline Phosphatase, S 62 35 - 104 U/L 04/02/2023 10:00 AM PROCESS IMPROVEMENT ENGINEER DTL Alanine Aminotransferase (ALT), S 18 7 - 45 U/L 04/02/2023 10:00 AM PROCESS IMPROVEMENT ENGINEER DTL Bilirubin, Total, S 0.4 0.0 - 1.2 mg/dL 04/02/2023 10:00 AM PROCESS IMPROVEMENT ENGINEER DTL Blood (Blood, Venous) 04/02/2023 8:37 AM PROCESS IMPROVEMENT ENGINEER 04/02/2023 9:37 AM PROCESS IMPROVEMENT ENGINEER Mansi Downs M.D., Ph.D. LAB BLOOD AD D-ON [address] [address], [place] DTL [facility] [address] [place] [address] from Last 3 Months or Most Recently Relevant to Health Maintenance Care Teams Research Biologist Relationship Specialty Start Date End Date Elsewhere, Pcp PCP - General Internal Medicine 05/23/22
--- OUTSIDE RECORDS SUMMARY | 2023-10-25 12:33 | XMS_ITS ---
Author Organization [facility] Address [address] [place] [address] Care Team Providers Care Freelance Patternmaker Name Role Phone Unavailable Unavailable Unavailable Surgery Details Not on file Complications Check Surgery Details section. Procedure Estimated Blood Loss Check Surgery Details section. Procedure Findings Check Surgery Details section. Procedure Specimens Taken Check Surgery Details section.
--- OUTSIDE RECORDS SUMMARY | 2023-10-25 12:33 | XMS_ITS | Clinical Summary ---
Author Organization [facility] Address [place], [place] [address] Care Team Providers Care Grooming Salon Manager Name Role Phone Manolo Cook MD Primary Care Provider [phone] Allergies Active Allergy Reactions Criticality Noted Date [...] Comments Blood Pressure 152/87 02/14/2023 8:58 AM SUSTAINABILITY CONSULTANT Pulse 70 02/14/2023 8:58 AM SUSTAINABILITY CONSULTANT Temperature 36.2 ??C (97.1 ??F) 02/14/2023 7:44 AM CS T Respiratory Rate 16 02/14/2023 8:58 AM SUSTAINABILITY CONSULTANT Oxygen Saturation 95% 02/14/2023 8:58 AM SUSTAINABILITY CONSULTANT Inhaled Oxygen Concentration - - Weight 79.6 kg (175 lb 6.4 oz) 02/09/2023 6:38 P M SUSTAINABILITY CONSULTANT Height 154.9 cm (5' 1) 02/09/2023 6:38 PM SUSTAINABILITY CONSULTANT Body Mass Index 33.14 02/09/2023 6:38 PM SUSTAINABILITY CONSULTANT Plan of Treatment Health Maintenance Due Date Last Done Comments Tdap 1949 Depression screening for age 12+ 1950 BMI (ht and wt on same day) for age 18+ 1956 Tetanus booster 1958 Zoster (shingles) series for age 50+ (1 of 2) 09/30/18 89 RSV vaccine for adults or pr egnancy (1 - 1-dose 60+ series) 1998 DEXA/DXA scan for age 65+ 10/01/2003 Pneumococcal series for age 65+ (1 of 1 - PCV) 004 COVID-19 vaccine series ( - 2022-24 season) 4 Influenza for age 65+ 10/14/2023 Advance Directives * Full Code (Latest Code Status on File) Date Activated Date Inactivated Comments 02/09/2023 6:52 PM 02/14/2023 2:39 PM Question Answer Comments Code Status Discussion: Reviewed Preferences Care Teams Grooming Salon Manager Relationship Specialty Start Date End Date Manolo Cook MD PCP - General Family Practice 08/08/16
--- OUTSIDE RECORDS SUMMARY | 2023-10-25 12:34 | XMS_ITS | Encounter Summary ---
Author Organization [facility] Address [address] [place] [address] Care Team Providers Care Weight Reduction Specialist Name Role Phone Elsewhere, Pcp Primary Care Provider Unavailabl e Encounter Details Date Type Department Care Team (Late st Contact Info) Description 10/30/2016 Historical Ophthalmology [facility] Baltazar Sarah M.D. [address] [address] Social History Tobacco Use Types Packs/Day Years Used Date Smoking Tobacco: Never Sex and Gender Information Value Date Recorded Sex Assigned at Unknown 04/04/2023 1:31 PM LOOM WINDER TENDER Gender Identity Female 04/04/2023 1:31 PM LOOM WINDER TENDER Sexual Orientation Not on file documented as [...] and keratitis. [facility] Reports - EYEGEN Id: [id number] Status: Fnl documented in this encounter Plan of Treatment Not on file documented as of this encounter Visit Diagnoses Not on filedocumented in this encounter Additional Health Concerns Infection Onset Date Last Indicated Resolved Time COVID19 Pending 10/16/2020 10/16/2020 10/17/2020 1 :06 AM CDT COVID19 10/16/2020 10/16/2020 11/05/2020 4:45 AM CDT documented as of this encounter Care Teams Weight Reduction Specialist Relationship Specialty Start Date End Date Elsewhere, Pcp PCP - General Internal Medicine 05/23/22 documented as of this encounter
--- OUTSIDE RECORDS SUMMARY | 2023-10-25 12:34 | XMS_ITS | Encounter Summary ---
Author Organization [facility] Address [address] [place] [address] Care Team Providers Care Ski Instructor Name Role Phone Elsewhere, Pcp Primary Care Provider Unavailabl e Encounter Details Date Type Department Care Team (Late st Contact Info) Description 11/03/2016 Historical Ophthalmology [facility] Baltazar Sarah M.D. [address], [place] [address] Social History Tobacco Use Types Packs/Day Years Used Date Smoking Tobacco: Never Sex and Gender Information Value Date Recorded Sex Assigned at Unknown 04/04/2023 1:31 PM DRYING ROOM SUPERVISOR Gender Identity Female 04/04/2023 1:31 PM DRYING ROOM SUPERVISOR Sexual Orientation Not on file documented as [...] in right eye, with ischemia and keratitis. [facility] Reports - EYEGEN Id: [id number] Status: Fnl documented in this encounter Plan of Treatment Not on file documented as of this encounter Visit Diagnoses Not on filedocumented in this encounter Additional Health Concerns Infection Onset Date Last Indicated Resolved Time COVID19 Pending 10/16/2020 10/16/2020 10/17/2020 1 :06 AM CDT COVID19 10/16/2020 10/16/2020 11/05/2020 4:45 AM CDT documented as of this encounter Care Teams Ski Instructor Relationship Specialty Start Date End Date Elsewhere, Pcp PCP - General Internal Medicine 05/23/22 documented as of this encounter
--- OUTSIDE RECORDS SUMMARY | 2023-10-25 12:34 | XMS_ITS | Encounter Summary ---
Author Organization [facility] Address [address] [place] [address] Care Team Providers Care Director Of Resource Development Name Role Phone Elsewhere, Pcp Primary Care Provider Unavailabl e Encounter Details Date Type Department Care Team (Late st Contact Info) Description 11/17/2016 Historical Ophthalmology [facility] Baltazar Sarah M.D. [address], [place] [address] Social History Tobacco Use Types Packs/Day Years Used Date Smoking Tobacco: Never Sex and Gender Information Value Date Recorded Sex Assigned at Unknown 04/04/2023 1:31 PM KILN FEEDER Gender Identity Female 04/04/2023 1:31 PM KILN FEEDER Sexual Orientation Not on file documented as [...] peripheral vision. [facility] Reports - EYEGEN Id: [id number] Status: Fnl documented in this encounter Plan of Treatment Not on file documented as of this encounter Visit Diagnoses Not on filedocumented in this encounter Additional Health Concerns Infection Onset Date Last Indicated Resolved Time COVID19 Pending 10/16/2020 10/16/2020 10/17/2020 1 :06 AM CDT COVID19 10/16/2020 10/16/2020 11/05/2020 4:45 AM CDT documented as of this encounter Care Teams Director Of Resource Development Relationship Specialty Start Date End Date Elsewhere, Pcp PCP - General Internal Medicine 05/23/22 documented as of this encounter
--- OUTSIDE RECORDS SUMMARY | 2023-10-25 12:34 | XMS_ITS | Encounter Summary ---
Author Organization [facility] Address [address] [place] [address] Care Team Providers Care Supervisor Floor Assembly Name Role Phone Elsewhere, Pcp Primary Care Provider Unavailabl e Encounter Details Date Type Department Care Team (Late st Contact Info) Description 12/08/2016 Historical Ophthalmology [facility] Baltazar Sarah M.D. [address] [place] [address] Social History Tobacco Use Types Packs/Day Years Used Date Smoking Tobacco: Never Sex and Gender Information Value Date Recorded Sex Assigned at Unknown 04/04/2023 1:31 PM AUTOMOTIVE TIRE TESTING SUPERVISOR Gender Identity Female 04/04/2023 1:31 PM AUTOMOTIVE TIRE TESTING SUPERVISOR Sexual Orientation Not on file documented as of this encounter Progress Notes * Baltazar Sarah M.D. - 12/08/2016 3:23 PM CDT Contact Lens Exam HISTORY OF PRESENT ILLNESS Pt. states states CL is comfortable and VA seems good. Only wears in OD [facility] Reports - EYECL Id: [id number] Status: Fnl documented in this encounter Plan of Treatment Not on file documented as of this encounter Visit Diagnoses Not on filedocumented in this encounter Additional Health Concerns Infection Onset Date Last Indicated Resolved Time COVID19 Pending 10/16/2020 10/16/2020 10/17/2020 1 :06 AM CDT COVID19 10/16/2020 10/16/2020 11/05/2020 4:45 AM CDT documented as of this encounter Care Teams Supervisor Floor Assembly Relationship Specialty Start Date End Date Elsewhere, Pcp PCP - General Internal Medicine 05/23/22 documented as of this encounter
--- OUTSIDE RECORDS SUMMARY | 2023-10-25 12:34 | XMS_ITS | Encounter Summary ---
Author Organization [facility] Address [address] [place] [address] Care Team Providers Care Pulp Beater Name Role Phone Elsewhere, Pcp Primary Care Provider Unavailabl e Encounter Details Date Type Department Care Team (Late st Contact Info) Description 10/31/2016 Historical Ophthalmology [facility] Baltazar Sarah M.D. [address] [address] Social History Tobacco Use Types Packs/Day Years Used Date Smoking Tobacco: Never Sex and Gender Information Value Date Recorded Sex Assigned at Unknown 04/04/2023 1:31 PM CHILD AND FAMILY COUNSELOR Gender Identity Female 04/04/2023 1:31 PM CHILD AND FAMILY COUNSELOR Sexual Orientation Not on file documented as [...] and keratitis. [facility] Reports - EYEGEN Id: [id number] Status: Fnl documented in this encounter Plan of Treatment Not on file documented as of this encounter Visit Diagnoses Not on filedocumented in this encounter Additional Health Concerns Infection Onset Date Last Indicated Resolved Time COVID19 Pending 10/16/2020 10/16/2020 10/17/2020 1 :06 AM CDT COVID19 10/16/2020 10/16/2020 11/05/2020 4:45 AM CDT documented as of this encounter Care Teams Pulp Beater Relationship Specialty Start Date End Date Elsewhere, Pcp PCP - General Internal Medicine 05/23/22 documented as of this encounter
--- OUTSIDE RECORDS SUMMARY | 2023-10-25 12:34 | XMS_ITS | Encounter Summary ---
Author Organization [facility] Address [address] [place] [address] Care Team Providers Care Automatic Glove Turner And Former Name Role Phone Elsewhere, Pcp Primary Care Provider Unavailabl e Encounter Details Date Type Department Care Team (Late st Contact Info) Description 12/08/2016 Historical Ophthalmology [facility] Baltazar Sarah M.D. 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 [facility] Reports - EYEGEN Id: [id number] Status: Fnl documented in this encounter Plan of Treatment Not on file documented as of this encounter Visit Diagnoses Not on filedocumented in this encounter Additional Health Concerns Infection Onset Date Last Indicated Resolved Time COVID19 Pending 10/16/2020 10/16/2020 10/17/2020 1 :06 AM CDT COVID19 10/16/2020 10/16/2020 11/05/2020 4:45 AM CDT documented as of this encounter Care Teams Automatic Glove Turner And Former Relationship Specialty Start Date End Date Elsewhere, Pcp PCP - General Internal Medicine 05/23/22 documented as of this encounter
--- OUTSIDE RECORDS SUMMARY | 2023-10-25 12:34 | XMS_ITS | Encounter Summary ---
Author Organization [facility] Address [address] [place] [address] Care Team Providers Care Auto Tech Name Role Phone Elsewhere, Pcp Primary Care Provider Unavailabl e Encounter Details Date Type Department Care Team (Latest Contact Info) Description 02/14/2023 Intake [facility] Social History Tobacco Use Types Packs/Day Years Used Date Smoking Tobacco: Never Passive Smoke Exposure: Never Alcohol Use Standard Drinks/Week Comments Not Currently 0 (1 standard drink = 0.6 oz pur e alcohol) [facility] Utilities Answer Date Recorded In the past 12 months has e [employer], gas, oil, or water [facility] threatened to shut off services in your [...] Sex Assigned at Unknown 04/04/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
--- NOTE | 2023-10-25 16:30 | PE_ITS ---
[facility] [address] [facility] [address] Phone:?[phone] Fax:?[phone] Referring Physician Information: Manolo Cook M.D. [address] [facility] [address] Phone:?[phone] Fax:?[phone] Patient:Malia Edmonds D.O.B:?[id number] Sex:?Female Phone:?[phone] [facility] MRN:?[id number] Exam Date:?10/25/2023 EXAM: PET/CT EYES TO THIGHS, CANCER RESTAGING CLINICAL INFORMATION: Colorectal cancer, restaging. TECHNICAL INFORMATION: Helical acquisition of data was obtained from the orbits to the upper thighs with reconstruction of 3.75 mm thick images at 3.[address] data was used for attenuation correction. PET scanning was performed through the same anatomic range 53 minutes following administration of 13.65 mCi of 18-FDG delivered intravenously. The patient's glucose at the time of the injection was 108 mg/dL. PET, CT and PET/CT fusion images are interpreted using a computer viewing workstation. PET, CT and PET/CT fusion images were archived and saved in the patient's permanent medical record. COMPARISON: Outside PET-CT from 04/02/2023. INTERPRETATION: Head and Neck: There are no abnormal hypermetabolic foci within the head or neck. There is physiologic uptake in the intracranial soft tissues. Chest: Right lower paratracheal lymph node (Se 2 Im 85) measures 3.0 x 2.6 cm with a maximum SUV of 10.58, previously 2.4 x 2.3 cm with a maximum SUV of 7.2. Ipsilateral hilar node has indistinct margins on CT but has a current maximum SUV of 9.83, previously 6.5. As before, there are a few tiny (subcentimeter) solid and semisolid lung nodules that are too small to resolve by PET-CT. Background mediastinal blood pool uptake has a maximum SUV of 3.68. Abdomen and Pelvis: As before, the patient is status post left hemicolectomy and low anterior resection with right lower quadrant colostomy. No ashley macroscopic residua/recurrence. Benign left adrenal adenoma redemonstrated. Background hepatic parenchymal uptake has a maximum SUV of 4.64. There is physiologic excretion of radiotracer in the urine and bowel. Skeleton, Musculature, and Integument: The patient's known osseous metastases are indexed as follows: ...a) right humeral lesion (Se 2 Im 32) has a maximum SUV of 6.42, previously 2.1. ...b) T8 lesion (Se 2 Im 107) has a maximum SUV of 6.81, previously 4.9. ...c) L2 lesion (Se 2 Im 156) has a maximum SUV of 8.52, previously 6.2. ...d) left iliac lesion (Se 2 Im 199) has a maximum SUV of 10.05, previously 6.3. ...e) right iliac lesion (Se 2 Im 197) has a maximum SUV of 9.32, previously 3.7. ...f) left hemisacral lesion (Se 2 Im 197) has a maximum SUV of 6.33, previously 3.1. ...g) parasymphyseal left pubic lesion (Se 2 Im 239) has a maximum SUV of 8.49, previously 4.2. ...h) right ischial lesion (Se 2 Im 242) has a maximum SUV of 7.7, previously 3.7. A few new hypermetabolic lesions are scattered throughout the bony pelvis (e.g., Se 2 Im 190, 205, 210, 217). CONCLUSION: When compared to the PET-CT March 2023, there is worsened metastatic burden involving the skeleton and right mediastinal/hilar lymphatics. Index lesions provided above. Electronically signed on 10/26/2023 12:57:00 PM by Kaleb Dinero M.D.
== END 2023-10-25 12:30 | disposition home or self-care (01) ==
LOC: RAD 12:32
PROVIDERS: PCP Family Medicine; Visit Provider Family Medicine
DX: C18.7 Malignant neoplasm of sigmoid colon (principal); C79.51 Secondary malignant neoplasm of bone
CPT/HCPCS: 78815; A9552